=== PATIENT | female | born 1945 | race Caucasian/White ===

== ENCOUNTER 2016-07-08 09:56 | Outpatient (CLI) | payer MEDICARE, OTHER ==
[2016-07-08 11:21] LABS: ALT (SGPT) 8 U/L (0-55); AST (SGOT) 15 U/L (5-34); Alkaline Phosphatase 62 U/L (40-150); Anion Gap 12 mmol/L (10-20); BUN (Urea Nitrogen) 14 mg/dL (9.8-20.1); Bilirubin, Total 0.4 mg/dL (0.2-1.2); Calc. Creatinine Clearance 0 mL/min (70-130); Calcium 8.7 mg/dL (7.8-10.44); Carbon Dioxide 22 mmol/L (23-31); Chloride 109 mmol/L (98-107); Estimated GFR-MDRD Greater than 90; Globulin 2.2 g/dL (2.4-3.5); Protein, Total 5.6 g/dL (5.8-8.1)
[2016-07-08 11:23] LABS: #Basophils 0.1 thou/uL (0.0-0.2); #Eosinphils 0.2 thou/uL (0.0-0.7); #Lymphocytes 2.1 thou/uL (1.20-3.40); #Monocytes 0.5 thou/uL (0.11-0.59); #Neutrophils 2.7 thou/uL (1.40-6.50); %Lymphocytes 37.5 % (21.0-51.0); %Monocytes 8.7 % (0.0-10.0); Hematocrit 39.9 % (36.0-47.0); Mean Platelet Volume 7.1 fL (7.4-10.4); White Blood Cell (WBC) Count 5.5 thou/uL (4.8-10.8)
== END 2016-07-08 09:57 | disposition home or self-care (01) ==
LOC: NAVSJIPCSP 09:56
PROVIDERS: ATTEND Internal Medicine
DX: I10 Essential (primary) hypertension (principal); I73.9 Peripheral vascular disease, unspecified
CPT/HCPCS: 80053; 84443; 85025

== ENCOUNTER 2018-05-25 16:28 | Emergency (ER) | payer MEDICARE, OTHER ==
[2018-05-25 17:07] LABS: #Basophils 0.1 thou/uL (0.0-0.2); #Lymphocytes 0.8 thou/uL (1.20-3.40); #Monocytes 0.7 thou/uL (0.11-0.59); #Neutrophils 13.9 thou/uL (1.40-6.50); %Basophils 0.3 % (0.0-1.0); %Monocytes 4.6 % (0.0-10.0); %Neutrophils 90.1 % (42.0-75.0); Hemoglobin 13.1 g/dL (12.0-16.0); Mean Corpuscular HGB CONC 31.8 g/dL (32.0-36.0); Mean Corpuscular Hemoglobin 28.5 pg (27.0-31.0); Mean Corpuscular Volume 89.4 fL (78.0-98.0); Mean Platelet Volume 6.2 fL (7.4-10.4); Platelet Count 377 thou/uL (130-400); RBC Distribution Width 12.5 % (11.5-14.5); White Blood Cell (WBC) Count 15.4 thou/uL (4.8-10.8)
[2018-05-25] MEDS ORDERED: Acetaminophen 650 MG Suppository ONE (17:15)
[2018-05-25] MEDS ORDERED: Sodium Chloride 0.9% 1,000 ML ONE (17:15)
[2018-05-25 17:22] LABS: ALT (SGPT) 14 U/L (8-55); AST (SGOT) 19 U/L (5-34); Alkaline Phosphatase 91 U/L (40-150); Anion Gap 16 mmol/L (10-20); BUN (Urea Nitrogen) 18 mg/dL (9.8-20.1); Bilirubin, Total 0.5 mg/dL (0.2-1.2); Calc. Creatinine Clearance 0 mL/min (70-130); Calcium 9.8 mg/dL (7.8-10.44); Carbon Dioxide 21 mmol/L (23-31); Chloride 107 mmol/L (98-107); Estimated GFR-MDRD Greater than 90; Globulin 3.1 g/dL (2.4-3.5); Glucose 173 mg/dL (83-110); Potassium 3.8 mmol/L (3.5-5.1); Protein, Total 7.1 g/dL (6.0-8.3); Sodium 140 mmol/L (136-145)
[2018-05-25] MEDS ORDERED: Fentanyl 100 MCG/2 ML VIAL ONE (17:48)
[2018-05-25] MEDS ORDERED: Ondansetron PF 4 MG/2 ML Vial ONE (17:48)
--- NOTE | 2018-05-25 18:02 | RAD ---
FRONTAL AND LATERAL IMAGING LEFT FEMUR: Date: 05-25-18 Comparison: None. History: Injury, trauma, pain. FINDINGS: There is an obliquely oriented fracture involving the proximal left femoral shaft. Distal fracture fr agment demonstrates prominent medial angulation. There is prominent proximal displacement and a mild degree of lateral displacement of the distal fracture fragment. IMPRESSION: Angulated displaced obliquely oriented proximal left femoral shaft fracture. POS: [facility]
--- NOTE | 2018-05-25 18:04 | RAD ---
TWO VIEWS LEFT HIP: Date: 05-25-18 Comparison: None. History: Injury, trauma, pain. FINDINGS: The rectum is expanded and filled with stool. Question fecal impaction. There is an obliquely oriente d fracture involving the proximal left femoral shaft. Distal fracture fragment demonstrates prominent medial angulation as well as lateral and proximal displacement. IMPRESSION: Obliquely oriented angulated and displaced proximal left femoral shaft fracture. POS: [facility]
--- NOTE | 2018-05-25 18:06 | RAD ---
SUPINE FRONTAL CHEST RADIOGRAPH: Date: 05-25-18 Comparison: 08-20-15 History: Swollen femur, pain. FINDINGS: Supine imaging is provided, limiting assessment for pneumothorax and pleural fluid. The patient is ro tated to the right. There is mild elevation of right hemidiaphragm limiting assessment of the right l yue base. Mild linear density in the left perihilar region may signify infiltrate or volume loss. No lobar consolidation or alveolar edema. IMPRESSION: Portable chest radiograph as above. POS: [facility]
[2018-05-25] MEDS ORDERED: Sodium Chloride 0.9% 100 ML ONE (18:15)
[2018-05-25] MEDS ORDERED: Piperacillin/Tazobactam 3.375 GM VIAL ONE (18:15)
[2018-05-25 18:22] LABS: Bilirubin Negative (Negative); Blood, Urine Large (Negative); Glucose, Urine (Dipstick) Negative (Negative); Leukocyte Negative (Negative); Nitrite Negative (Negative); Protein, Urine (Dipstick) 30 mg/dL (Neg-Trace); Urobilinogen 0.2 mg/dL (0.2-1.0)
[2018-05-25 18:25] LABS: Clarity SL HAZY (Clear)
[2018-05-25 18:41] LABS: Specific Gravity, Urine 1.032 (1.005-1.030)
[2018-05-25 18:43] LABS: Squamous Epithelial 0-3 HPF (0-3); WBC/HPF 0-3 HPF (0-3)
[2018-05-25 18:45] LABS: Crystals/HPF 1+ AMMN BIURATE HPF (Negative)
== END 2018-05-25 19:03 | disposition short-term general hospital (02) ==
LOC: NAV ERS 16:28
DX: S72.002A Fracture of unspecified part of neck of left femur, initial encounter for closed fracture (principal); A41.9 Sepsis, unspecified organism; D72.829 Elevated white blood cell count, unspecified; E03.9 Hypothyroidism, unspecified; K21.9 Gastro-esophageal reflux disease without esophagitis; I10 Essential (primary) hypertension; G30.9 Alzheimer's disease, unspecified; F02.80 Dementia in other diseases classified elsewhere, unspecified severity, without behavioral disturbance, psychotic disturbance, mood disturbance, and anxiety; F41.9 Anxiety disorder, unspecified; F32.9 Major depressive disorder, single episode, unspecified; Z79.899 Other long term (current) drug therapy; X50.1XXA Overexertion from prolonged static or awkward postures, initial encounter
CPT/HCPCS: 51702; 71045; 80053; 81003; 81015; 83605; 85025; 87040; 87086; 87149; 96365; 96375; J2405; J2543; J3010; J7050